=== PATIENT | male | born 1985 | race Two or more races ===

== ENCOUNTER 2017-08-12 23:44 | Emergency (ER) | payer MEDICAID ==
[~2017-08-12] VITALS: Ht 175.3 cm; Wt 69.1 kg
[2017-08-13 00:05] VITALS: BP 107/64
[2017-08-13] MEDS ORDERED: HYDROcodone/acetaminophen 10/325mg tab PO ONE (01:45)
[2017-08-13] MEDS ORDERED: IBUP-1984 PO (02:43)
== END 2017-08-13 04:18 | disposition home or self-care (01) ==
LOC: ER 23:45 → EDSEX 23:45 → ER 08-13 04:18
DX: S90.31XA Contusion of right foot, initial encounter (principal); S80.212A Abrasion, left knee, initial encounter; S20.91XA Abrasion of unspecified parts of thorax, initial encounter; F12.90 Cannabis use, unspecified, uncomplicated; Y04.8XXA Assault by other bodily force, initial encounter; Y93.89 Activity, other specified; Y92.89 Other specified places as the place of occurrence of the external cause; Y99.8 Other external cause status
CPT/HCPCS: 71045; 72074; 72100; 73564; 73590; 73630; 99284

== ENCOUNTER 2018-08-05 22:01 | Emergency (ER) | payer MEDICAID, OTHER ==
[~2018-08-05] VITALS: Ht 175.3 cm; Wt 71.4 kg
[~2018-08-05 22:01] MED LIST: NAPR-1154 PO; PRED10TA PO
[2018-08-05] MEDS ORDERED: ketorolac tromethamine 15mg/ml inj. IM ONE (22:30)
[2018-08-05 22:52] LABS: BASOPHILS # (AUTO) 0.1 X10'3 (0-0.2); BASOPHILS % (AUTO) 0.5 % (0-1); EOSINOPHILS # (AUTO) 0.2 X10'3 (0-0.9); EOSINOPHILS % (AUTO) 1.9 % (0-6); HEMOGLOBIN 12.7 g/dl (14.0-17.9); LYMPHOCYTES # (AUTO) 2.1 X10'3 (1.1-4.8); LYMPHOCYTES % (AUTO) 16.6 % (21-51); MEAN CORPUSCULAR HEMOGLOBIN 31.3 PG (27.0-31.0); MEAN CORPUSCULAR HGB CONC 33.4 g/dL (33.0-36.5); MEAN CORPUSCULAR VOLUME 93.7 FL (78-98); MONOCYTES # (AUTO) 1.3 X10'3 (0-0.9); MONOCYTES % (AUTO) 10.1 % (2-12); NEUTROPHILS # (AUTO) 8.8 X10'3 (1.8-7.7); NEUTROPHILS % (AUTO) 70.9 % (42-75); PLATELET COUNT 271 X10'3 (140-440); RED BLOOD COUNT 4.06 X10'6 (4.70-6.10); RED CELL DISTRIBUTION WIDTH 14.2 % (11.5-14.5); WHITE BLOOD COUNT 12.4 X10'3 (4.5-11.0)
[2018-08-05 23:07] LABS: ALANINE AMINOTRANSFERASE 28 U/L (12-78); ALBUMIN 4.4 G/DL (3.4-5.0); ALBUMIN/GLOBULIN RATIO 1.3 (1.1-1.5); ALKALINE PHOSPHATASE 70 IU/L (46-116); ANION GAP 10 (8-16); ASPARTATE AMINO TRANSFERASE 14 U/L (10-37); BILIRUBIN,TOTAL 0.7 MG/DL (0.1-1.0); BLOOD UREA NITROGEN 14 MG/DL (7-18); BUN/CREATININE RATIO 15.7 (5.4-32.0); CALCIUM 8.9 MG/DL (8.5-10.1); CHLORIDE 105 MMOL/L (99-107); CREATININE 0.89 MG/DL (0.60-1.10); GLUCOSE 92 MG/DL (70-104); POTASSIUM 3.4 MMOL/L (3.5-5.1); SODIUM 139 MMOL/L (135-145); TOTAL PROTEIN 7.8 G/DL (6.4-8.2); eGFR > 90 ML/MIN
[2018-08-05 23:58] VITALS: BP 96/62
[2018-08-05 23:58] LABS: CLARITY,URINE SLIGHTLY CLOUDY (Clear); COLOR,URINE YELLOW (Yellow); GLUCOSE, URINE NEGATIVE (Neg); KETONES,URINE NEGATIVE (Neg); LEUKOCYTE ESTERASE ,URINE NEGATIVE (Neg); NITRITES, URINE NEGATIVE (Neg); OCCULT BLOOD,URINE NEGATIVE (Neg); PROTEIN,URINE 30 mg/dl (Neg); UROBILINOGEN,URINE 0.2 E.U/dL (0.2-1.0)
--- NOTE | 2018-08-06 | NUR ---
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
[2018-08-06 00:03] LABS: UA COLLECTION TYPE CLN CATCH MIDSTREAM
[2018-08-06] MEDS ORDERED: ketorolac tromethamine 15mg/ml inj. IM ONE (00:05)
[2018-08-06 00:09] LABS: URINE AMPHETAMINE SCREEN POSITIVE (Neg); URINE BARBITUATE SCREEN NEGATIVE (Neg); URINE BENZODIAZEPINES SCREEN NEGATIVE (Neg); URINE CANNABINOID SCREEN POSITIVE (Neg); URINE COCAINE SCREEN NEGATIVE (Neg); URINE METHADONE SCREEN NEGATIVE (Neg); URINE OPIATE SCREEN NEGATIVE (Neg); URINE PHENCYCLIDINE SCREEN NEGATIVE (Neg)
[2018-08-06 00:13] LABS: MUCUS STRANDS MANY /LPF (Neg); SQUAMOUS EPITHELIAL CELL,UR FEW /LPF (FEW)
[2018-08-06 00:14] LABS: BACTERIA,URINE FEW /HPF (Neg); CAL OXALATE CRYSTALS FEW /HPF (NEGATIVE); RBC,URINE 0-2 /HPF (0-2); WBC,URINE 0-4 /HPF (0-4)
== END 2018-08-06 00:32 | disposition home or self-care (01) ==
LOC: ER 22:02
DX: M79.671 Pain in right foot (principal); M79.672 Pain in left foot; F17.200 Nicotine dependence, unspecified, uncomplicated; F12.90 Cannabis use, unspecified, uncomplicated; Z79.899 Other long term (current) drug therapy
CPT/HCPCS: 36415; 73630; 80053; 80305; 81001; 85025; 85651; 96372; 99284; J1885; 81003

== ENCOUNTER 2018-09-20 11:54 | Emergency (ER) | payer OTHER ==
[~2018-09-20] VITALS: Ht 175.3 cm; Wt 69.0 kg
[2018-09-20] MEDS ORDERED: TETanus/Pertussis (Acell)/Diphther VAC/PF (Tdap-Adult) 0.5ml syringe IM ONE (12:25)
[2018-09-20] MEDS ORDERED: ibuprofen tablet 400 MG TABLET PO ONE (12:25)
[2018-09-20] MEDS ORDERED: amox tr/potassium clavulanate 875/125mg TAB PO ONE (12:25)
[2018-09-20] MEDS ORDERED: AMOX-422 PO (12:28)
[2018-09-20 14:00] VITALS: BP 98/50
== END 2018-09-20 14:02 ==
LOC: EEVIPCON 11:55 → ER 11:55
DX: S81.831A Puncture wound without foreign body, right lower leg, initial encounter (principal); S20.212A Contusion of left front wall of thorax, initial encounter; F12.90 Cannabis use, unspecified, uncomplicated; F10.99 Alcohol use, unspecified with unspecified alcohol-induced disorder; Z79.899 Other long term (current) drug therapy; W54.0XXA Bitten by dog, initial encounter; V43.92XA Unspecified car occupant injured in collision with other type car in traffic accident, initial encounter; Y93.89 Activity, other specified; Y93.I9 Activity, other involving external motion; Y92.89 Other specified places as the place of occurrence of the external cause; Y92.488 Other paved roadways as the place of occurrence of the external cause; Y99.8 Other external cause status; Y90.9 Presence of alcohol in blood, level not specified
CPT/HCPCS: 70450; 71250; 72125; 74176; 90471; 99284

== ENCOUNTER 2019-01-29 23:40 | Emergency (ER) | payer OTHER ==
[~2019-01-29] VITALS: Ht 175.3 cm; Wt 74.1 kg
[~2019-01-29 23:40] MED LIST changes: +LIDOcaine 1% W/epiNEPHrine 1:100,000 20ml vial ONE
[2019-01-29 23:43] VITALS: BP 122/77
[2019-01-30] MEDS ORDERED: bacitracin 15gm ointment TP ONE
[2019-01-30] MEDS ORDERED: ibuprofen tablet 400 MG TABLET PO ONE (01:00)
== END 2019-01-30 01:19 | disposition home or self-care (01) ==
LOC: ER 23:40
DX: S01.81XA Laceration without foreign body of other part of head, initial encounter (principal); R40.1 Stupor; R51 Headache; M54.2 Cervicalgia; F12.90 Cannabis use, unspecified, uncomplicated; Z79.899 Other long term (current) drug therapy; W01.10XA Fall on same level from slipping, tripping and stumbling with subsequent striking against unspecified object, initial encounter; Y93.89 Activity, other specified; Y92.89 Other specified places as the place of occurrence of the external cause; Y99.8 Other external cause status
CPT/HCPCS: 12011; 70450; 72125; 99284